=== PATIENT | female | born 1945 | race Caucasian/White ===

== ENCOUNTER → 2016-09-07 | Outpatient (REF) | payer MEDICARE ==
[~2016-09-07] MED LIST: DIGO0.25 PO; DILT30TA PO; ELIQ2.5T PO; FOLI1TAB2 PO; FURO40TA2 PO; HYDR-3716 PO; METH2.5TA PO; TRAV04OPD OU
== END ==
LOC: M LAB REF 16:28
PROVIDERS: ATTEND Internal Medicine
DX: R74.8 Abnormal levels of other serum enzymes (principal)